=== PATIENT | female | born 1975 | race Hispanic/Latino ===

== ENCOUNTER 2018-10-08 13:25 | Emergency (ER) | payer OTHER ==
[2018-10-08] MEDS ORDERED: NACL 0.9% 1000 ML 1,000 ML IV ONE (13:58)
[2018-10-08] MEDS ORDERED: ZOFRAN IV ONE ×2 (13:58→17:28)
[2018-10-08] MEDS ORDERED: MORPHINE IV ONE (13:58)
--- NOTE | 2018-10-08 14:02 | Emergency Department Report ---
ED Female HPI - General Chief complaint: Vaginal Bleeding Stated complaint: MISCARRIAGE/BLEEDING/PAIN Time Seen by Provider: 10/08/18 13:50 Source: patient Mode of arrival: Ambulatory Limitations: No Limitations - History of Present Illness Initial comments: Patient is 43 years old female with no significant past medical history. Patient is 3 para 2, approximately 10 weeks . Patient presented to the ER complaining of 2 day history of vaginal bleeding associated with abdominal cramping. Patient stated that she is changing her pads almost every hour. Patient denied any dizziness, chest pain or shortness of breath. MD Complaint: vaginal bleeding, pelvic pain -: Last night Radiation: suprapubic Quality: cramping Improves with: none Are you Now?: Yes - Related Data : 3 Para: 2 Previous Rx's Medication Instructions Recorded Last Taken Type HYDROcodone/APAP 5-325 [[place] 1 each PO Q6HR PRN #14 tablet 10/08/18 Unknown Rx 5/325] Ondansetron [Zofran Odt] 4 mg PO Q8HR PRN #14 tab.rapdis 10/08/18 Unknown Rx Allergies Allergy/AdvReac Type Severity Reaction Status Date / Time No Known Allergies Allergy Unverified 10/08/18 13:38 ED Review of Systems ROS: Stated complaint: MISCARRIAGE/BLEEDING/PAIN Other details as noted in HPI Comment: All other systems reviewed and negative Constitutional: denies: chills, fever Respiratory: denies: cough, orthopnea, shortness of breath, SOB with exertion, SOB at rest, wheezing Cardiovascular: denies: chest pain, palpitations, dyspnea on exertion Gastrointestinal: abdominal pain. denies: nausea, vomiting, diarrhea, constipation, hematemesis, melena, hematochezia Musculoskeletal: denies: back pain ED Past Medical Hx - Past Medical History Previous Medical History?: Yes Hx Headaches / Migraines: Yes Hx Psychiatric Treatment: Yes (Anxiety) - Surgical History Past Surgical History?: Yes Additional Surgical History: x 2 - Social History Smoking Status: Unknown if ever smoked Substance Use Type: Prescribed - Medications Home Medications: Home Medications Medication Instructions Recorded Confirmed Last Taken Type HYDROcodone/APAP 5-325 [[place] 1 each PO Q6HR PRN #14 tablet 10/08/18 Unknown Rx 5/325] Ondansetron [Zofran Odt] 4 mg PO Q8HR PRN #14 tab.rapdis 10/08/18 Unknown Rx ED Physical Exam - General Limitations: No Limitations General appearance: alert, in no apparent distress - Head Head exam: Present: atraumatic, normocephalic, normal inspection - Eye Eye exam: Present: normal appearance - ENT ENT exam: Present: normal exam, normal orophraynx, mucous membranes moist - Neck Neck exam: Present: normal inspection, full ROM. Absent: tenderness, meningismus, lymphadenopathy, thyromegaly - Respiratory Respiratory exam: Present: normal lung sounds bilaterally - Cardiovascular Cardiovascular Exam: Present: regular rate, normal rhythm, normal heart sounds - GI/Abdominal GI/Abdominal exam: Present: soft, tenderness, normal bowel sounds. Absent: distended, guarding, rebound, rigid, organomegaly, mass, bruit, pulsatile mass, hernia - Extremities Exam Extremities exam: Present: normal inspection, full ROM, normal capillary refill. Absent: pedal edema, calf tenderness - Back Exam Back exam: Present: normal inspection, full ROM. Absent: tenderness, CVA tenderness (R), CVA tenderness (L), muscle spasm, paraspinal tenderness, vertebral tenderness - Neurological Exam Neurological exam: Present: alert, oriented X3, CN II-XII intact, normal gait, reflexes normal - Skin Skin exam: Present: warm, intact, normal color ED Course Vital Signs 10/08/18 10/08/18 10/08/18 13:38 17:01 17:27 Temperature 98 F Pulse Rate 103 H 83 76 Respiratory 24 16 16 Rate Blood Pressure 147/88 Blood Pressure 101/46 124/78 [Right] O2 Sat by Pulse 97 94 96 Oximetry 10/08/18 18:31 Temperature 97.6 F Pulse Rate 76 Respiratory 16 Rate Blood Pressure Blood Pressure 138/54 [Right] O2 Sat by Pulse Oximetry ED Medical Decision Making - Lab Data Result diagrams: 10/08/18 13:53 - Radiology Data Radiology results: report reviewed Referring Physician: DEMLA TA Patient Name: JAY HAYNES Date of : 1975 Sex: Female Report Date: 2018-10-08 Report Status: Finalized Findings [address] [address] Ultrasound Report Signed Patient: JAY HAYNES MR#: [id number] : 1975 Acct:[id number] Age/Sex: 43 / F ADM Date: 10/08/18 Loc: ED Attending Dr: Ordering Physician: DELMA TA Date of Service: 10/08/18 Procedure(s): US OB transvaginal Accession Number(s): [id number] cc: DELMA TA FINAL REPORT EXAM: US OB TRANSVAGINAL HISTORY: ABDOMINAL PAIN TECHNIQUE: Transvaginal grayscale and color-flow imaging of the pelvis was performed. Comparison: Transabdominal study also performed today FINDINGS: The uterus measures 9.6 centimeters x 5 centimeters by 4.7 centimeters. Endometrial thickness measures 10 millimeters. There is no demonstration of an intrauterine gestation. The cervix is slightly heterogeneous in appearance. The right ovary measures 2.5 centimeters x 1.6 centimeters x 1.8 centimeters and is unremarkable in appearance. The left ovary is not visualized on the transvaginal study. No free fluid is demonstrated in the pelvis. IMPRESSION: 1. No demonstration of an intrauterine gestation. In the absence of demonstration of an intrauterine gestation, an ectopic gestation cannot be excluded. Short-term follow-up in correlation with beta HCG is recommended. 2. The cervix is slightly heterogeneous in appearance. Transcribed By: ED Dictated By: PRIYANKA WRIGHT MD Electronically Authenticated By: PRIYANKA WRIGHT MD Signed Date/Time: 10/08/181799 DD/ 02 TD/TT: 10/08/181802 - Medical Decision Making Patient is 43 years old female with no significant past medical history. Patient is 3 para 2, approximately 10 weeks . Patient presented to the ER complaining of 2 day history of vaginal bleeding associated with abdominal cramping. Patient stated that she is changing her pads almost every hours. Patient denied any dizziness, chest pain or shortness of breath. Patient stated that she is feeling much better. 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 Patient pelvic ultrasound showed empty uterus. Patient stated that she had a ultrasound during this early and she was told that she has ablated ovum. Patient stated that she has an appointment with her [place] doctor in 2 days. I advised her to keep her appointment and to return to the ER if her symptoms are not improved. Critical care attestation.: If time is entered above; I have spent that time in minutes in the direct care of this critically ill patient, excluding procedure time. ED Disposition Clinical Impression: Pelvic pain affecting , Vaginal bleeding, Miscarriage Disposition: TO HOME OR SELFCARE Is pt being admited?: No Condition: Stable Instructions: Spontaneous Miscarriage (ED) Prescriptions: HYDROcodone/APAP 5-325 [[place] 5/325] 1 each PO Q6HR PRN #14 tablet PRN Reason: Pain Ondansetron [Zofran Odt] 4 mg PO Q8HR PRN #14 tab.rapdis PRN Reason: Nausea And Vomiting Referrals: PRIMARY CARE,MD [Primary Care Provider] - 3-5 Days Forms: Work/School Release Form(ED)
[2018-10-08 14:05] LABS: Basophils # (Auto) 0.1 K/mm3 (0.0-0.1); Eosinophils # (Auto) 0.3 K/mm3 (0.0-0.4); Eosinophils % (Auto) 4.1 % (0.0-4.3); Hematocrit 28.9 % (30.3-42.9); Lymphocytes # (Auto) 1.4 K/mm3 (1.2-5.4); Lymphocytes % (Auto) 19.7 % (13.4-35.0); Mean Corpuscular HGB Conc 31 % (30-34); Mean Corpuscular Volume 72 fl (79-97); Monocytes # (Auto) 0.5 K/mm3 (0.0-0.8); Monocytes % (Auto) 6.8 % (0.0-7.3); Platelet Count 374 K/mm3 (140-440); Red Blood Count 4.05 M/mm3 (3.65-5.03); Red Cell Distribution Width 17.2 % (13.2-15.2)
[2018-10-08 14:21] LABS: INR 0.91 (0.87-1.13)
[2018-10-08 14:22] LABS: Partial Thromboplastin Time 29.8 Sec. (24.2-36.6)
[2018-10-08] MEDS ORDERED: MORPHINE IM ONE (17:28)
--- NOTE | 2018-10-08 17:56 | Ultrasound Report ---
FINAL REPORT EXAM: US OB <= 14 WEEKS FETUS HISTORY: abdominal pain, vaginal bleeding, 10 weeks pregnan last menstrual period July 30, 2018 TECHNIQUE: Transabdominal grayscale and color-flow imaging of the pelvis was performed. Comparison: Transvaginal study also performed today FINDINGS: The uterus measures 9.9 centimeters x 5 centimeters by 4.9 centimeters. There is increased thickness of the endometrium (18 millimeters). There is no demonstration of an int rauterine gestation. The left ovary measures 3.5 centimeters x 2 centimeters x 2.5 centimeters and contains an approximate ly 2 centimeter cystic structure. The right ovary is not visualized on the transabdominal study. No free fluid is demonstrated in the pelvis. The urinary bladder is unremarkable in appearance. IMPRESSION: 1. No demonstration of an intrauterine gestation on the transabdominal study. 2. Increased thickness of the endometrium. Please see report of transvaginal study also performed today.
--- NOTE | 2018-10-08 18:00 | Ultrasound Report ---
FINAL REPORT EXAM: US OB TRANSVAGINAL HISTORY: ABDOMINAL PAIN TECHNIQUE: Transvaginal grayscale and color-flow imaging of the pelvis was performed. Comparison: Transabdominal study also performed today FINDINGS: The uterus measures 9.6 centimeters x 5 centimeters by 4.7 centimeters. Endometrial thickness measures 10 millimeters. There is no demonstration of an intrauterine gestation. The cervix is slightly heterogeneous in appearance. The right ovary measures 2.5 centimeters x 1.6 centimeters x 1.8 centimeters and is unremarkable in a ppearance. The left ovary is not visualized on the transvaginal study. No free fluid is demonstrated in the pelvis. IMPRESSION: 1. No demonstration of an intrauterine gestation. In the absence of demonstration of an intrauterine gestation, an ectopic gestation cannot be excluded . Short-term follow-up in correlation with beta HCG is recommended. 2. The cervix is slightly heterogeneous in appearance.
[2018-10-08 18:32] VITALS: BP 138/54
== END 2018-10-08 18:31 | disposition home or self-care (01) ==
LOC: ED 13:25
DX: O03.9 Complete or unspecified spontaneous abortion without complication (principal); O99.341 Other mental disorders complicating pregnancy, first trimester; F41.9 Anxiety disorder, unspecified; O26.891 Other specified pregnancy related conditions, first trimester; G43.909 Migraine, unspecified, not intractable, without status migrainosus; Z3A.10 10 weeks gestation of pregnancy
CPT/HCPCS: 36415; 76801; 76817; 84702; 85025; 85610; 85730; 86850; 86900; 86901; 96372; 96374; 96375; 96376; 99284; J2270; J2405; J7030